=== PATIENT | male | born 1970 | race African-American/Black ===

== ENCOUNTER 2023-03-22 11:06 | Emergency (ER) | payer OTHER, SELFPAY ==
--- NOTE | ~2023-03-22 | XR_ITS ---
EXAMINATION: Right foot and ankle x-rays CLINICAL INFORMATION: Trauma COMPARISON: None. TECHNIQUE: 3 views of the right foot and 3 views of the right ankle FINDINGS: Right foot: Bone alignment is normal. No fracture or dislocation. Normal joint spaces. Normal soft tissues. Right ankle: Bone alignment is normal. No acute fracture or dislocation. Well-corticated soft tissue ossifications inferior to the medial malleolus suggestive of old trauma. Normal ankle mortise. Soft tissue calcification in the posterior lower leg suggestive of Achilles tendon calcification or myotendinous junction calcification. There may be soft tissue swelling in this region as well. XR/XR ankle RT min 3V IMPRESSION: No acute fracture or dislocation. Evidence of old trauma to the medial malleolus. Soft tissue calcification and soft tissue swelling of the Achilles tendon/myotendinous junction.
--- NOTE | ~2023-03-22 | XR_ITS ---
EXAMINATION: Right foot and ankle x-rays CLINICAL INFORMATION: Trauma COMPARISON: None. TECHNIQUE: 3 views of the right foot and 3 views of the right ankle FINDINGS: Right foot: Bone alignment is normal. No fracture or dislocation. Normal joint spaces. Normal soft tissues. Right ankle: Bone alignment is normal. No acute fracture or dislocation. Well-corticated soft tissue ossifications inferior to the medial malleolus suggestive of old trauma. Normal ankle mortise. Soft tissue calcification in the posterior lower leg suggestive of Achilles tendon calcification or myotendinous junction calcification. There may be soft tissue swelling in this region as well. XR/XR foot RT min 3V IMPRESSION: No acute fracture or dislocation. Evidence of old trauma to the medial malleolus. Soft tissue calcification and soft tissue swelling of the Achilles tendon/myotendinous junction.
--- NOTE | ~2023-03-22 | US_ITS ---
EXAMINATION: US VENOUS ULTRASOUND WITH DOPPLER LOWER EXTREMITY, RIGHT CLINICAL INFORMATION: Right lower extremity swelling and redness. History of Achilles tendon repair 12 years ago with palpable lump. History of the trauma 1 week ago COMPARISON: None available. TECHNIQUE: Ultrasound of the deep veins is performed from the hip to the calf with compression sonography and color and pulse Doppler assessment. Spectral analysis with color-flow imaging is performed. Grayscale imaging with linear transducer of the palpable lump/Achilles tendon is also performed. FINDINGS: There is normal venous compression and respiratory variation and augmented flow. The visualized common femoral vein, superficial femoral vein, profunda femoral vein, popliteal vein, and the trifurcation region shows no evidence of deep venous thrombosis. There is no Dobson's cyst. There are postsurgical changes to the Achilles tendon. No obvious tear is seen. There is increased soft tissue adjacent to this region which appears hypervascular and small amount of fluid. Appearance is questionable for a hematoma or abscess. This could be better further evaluated with MRI. US/US venous duplex LE RT IMPRESSION: No DVT demonstrated in the right lower extremity. Postsurgical changes from previous Achilles tendon repair. No obvious Achilles tendon tear appreciated by ultrasound. Adjacent abnormal hypervascular soft tissue and small amount of fluid. Hematoma or infection should be considered. This could be better evaluated with MRI if clinically indicated.
[2023-03-22 11:12] VITALS: BP 128/87; PULSE 80; RESP 18; TEMP 36.3; O2SAT 98; BMI 29.9
--- NOTE | 2023-03-22 11:12 | ED_ITS ---
HPI - Extremity Injury (Lower) General Chief Complaint: Extremity Problem Stated Complaint: right foot/ankle injury Time Seen by Provider: 03/22/23 15:34 Source: patient Mode of arrival: ambulatory Limitations: no limitations History of Present Illness HPI Narrative: Patient presents with 1 week of right ankle pain. Patient stepped off a step at that time. The 1st day felt no significant symptoms but the following day developed increasing right ankle pain. The pain was moderate in nature. The pain does not radiate. Sharp in achy. Is worse with ambulation. Associated with redness and swelling. Symptoms have been steadily getting worse. He has had no fevers or chills. Denies any numbness or tingling. He has no chest pain or shortness of breath. Patient denies a history of PE or DVT. He does have a history of Achilles tendon repair. Related Data Previous Rx's Medication Instructions Recorded sulfamethoxazole 800 1 tab PO BID #20 tabs 03/22/23 mg-trimethoprim 160 mg tablet (Bactrim DS) Allergies Allergy/AdvReac Type Severity Reaction Status Date / Time No Known Allergies Allergy Verified 03/22/23 11:12 Review of Systems Review of Systems: CONSTITUTIONAL: Denies weight loss, fever and chills. HEENT: Denies changes in vision and hearing. RESPIRATORY: Denies SOB and cough. CV: Denies palpitations no CP. GI: Denies abdominal pain, nausea, vomiting and diarrhea. : Denies dysuria and urinary frequency. MSK: + myalgia and joint pain. SKIN: Denies rash and pruritus. NEUROLOGICAL: Denies headache and syncope. PSYCHIATRIC: Denies recent changes in mood. Denies anxiety and depression. All other ROS are negative unless in HPI PMFSH Social History Social History Advance Directives: No Advance Directives Information Provided: Yes Physical Exam Vital Signs: Vital Signs: Last Vital Signs Temp 97.4 F 03/22/23 11:12 Pulse 71 03/22/23 15:15 Resp 18 03/22/23 15:22 BP 155/85 H 03/22/23 15:22 Pulse Ox 97 03/22/23 15:22 O2 Del Method Room Air 03/22/23 15:15 BMI result Body Mass Index 29.9 GEN: Well developed, no acute distress, alert, oriented HEENT: Normocephalic, atraumatic, normal external ears, nose appears normal Eyes: Normal to appearance Neck: Supple, no lymphadenopathy Respiratory: Talks in complete sentences, no respiratory distress Extremities: No clubbing cyanosis or edema, right Achilles redness, swelling, tenderness, swelling, no fluctuance surfaces, neurovascularly intact Neurologic: No focal neurologic deficits, cranial nerves 2-12 intact, gait normal Skin: No rash Course Course Course Narrative: RME: 52yo M w/no sig PMHx c/o Right ankle pain, swelling & erythema x6 days s/p twisitng foot. denies known insect bites, fever, SOB, or clots. Did travel to [place] recently limping gait. R posterior ankle w/erythema, swelling, warmth & mild induration. +1 edema RLE Labs, XR, Duplex US ordered Full HPI, ROS and PE to be performed by primary ED provider. Reevaluation(s) Reevaluation #1: The workup is complete. Peers to have cellulitis. There may be an early abscess formation. There is nothing to drain at this time. Will start patient on oral antibiotics, analgesics, warm compresses and follow-up in 3-5 days with his primary care provider sooner if needed Time: 15:48 Medical Decision Making Medical Decision Making [facility] Narrative: Patient presents with swelling, redness and pain to the right Achilles tendon area. Differential diagnosis could be cellulitis, abscess, DVT, cystic structure, and Achilles tendon rupture, inflammatory changes. Patient will need x-rays to assess for bony injury given the traumatic nature of his symptoms, ultrasound to rule out DVT. They may be able to further assess make sure there is no Achilles tendon related issues. At this point I presume the patient has cellulitic changes and would recommend oral antibiotics pending further evaluation. Differential Diagnosis Differential Diagnoses: The differential diagnosis associated with the presentation includes (See above) Lab Data [facility] Lab Attestation statement: I reviewed the patient's lab results. 03/22/23 11:24 03/22/23 11:24 Labs: Lab Results 03/22/23 03/22/23 Range/Units 11:24 11:24 WBC 5.7 (4.8-10.8) X10*3/uL RBC 4.41 L (4.60-5.80) X10*6/uL Hgb 13.5 L (14.0-18.0) g/dl Hct 41.4 L (42.0-52.0) % MCV 93.9 (80.0-98.0) fL MCH 30.6 (27.0-33.0) pg MCHC 32.6 (31.0-36.0) g/dl RDW 12.9 (11.0-16.0) % Plt Count 277 (160-400) X10*3/uL MPV 10.2 (9.4-12.4) fL Immature Gran % (Auto) 0.4 (0.0-0.4) % Neut % (Auto) 63.8 (45-73) % Lymph % (Auto) 18.4 L (20-40) % [place] % (Auto) 9.5 (2-11) % Eos % (Auto) 7.2 H (0-4) % Baso % (Auto) 0.7 (0-2) % Lymph # (Auto) 1.1 L (1.2-4.9) X10*3/uL [place] # (Auto) 0.5 (0.1-1.2) X10*3/uL Eos # (Auto) 0.4 (0.0-0.4) X10*3/uL Baso # (Auto) 0.0 (0.0-0.2) X10*3/uL Abs Immat Gran (auto) 0.02 (0.00-0.03) X10*3/uL Absolute Neuts (auto) 3.6 (2.0-8.3) x10*3/uL Absolute Nucleated RBC 0.000 (0.0-0.012) X10*3/uL Nucleated RBC % (auto) 0.0 (0.0-0.2) /100WBC Sodium 142 (135-145) mmol/L Potassium 3.8 (3.3-5.1) mmol/L Chloride 109 H (96-108) mmol/L Carbon Dioxide 24 (22-29) mmol/L Anion Gap 13 (12-20) BUN 15 (9-16) mg/dL Creatinine 1.14 (0.5-1.4) mg/dL Estim Creat Clear Calc 93.8 Estimated GFR > 60 Random Glucose 141 H (60-115) mg/dL Calcium 9.4 (8.4-10.2) mg/dL Independent Interpretation I performed an independent interpretation of an: Plain X-Ray (Right foot, right ankle, no acute traumatic injury) Radiology Impression Discussion of test interpretation with radiology: I have reviewed the radiologist's reading. Radiologist Impression: US/US venous duplex LE RT IMPRESSION: No DVT demonstrated in the right lower extremity. Postsurgical changes from previous Achilles tendon repair. No obvious Achilles tendon tear appreciated by ultrasound. Adjacent abnormal hypervascular soft tissue and small amount of fluid. Hematoma or infection should be considered. This could be better evaluated with MRI if clinically indicated. Dictated By: Jeanine Alves MD Signed By: <Electronically signed by Jeanine Alves MD in [place]> 03/22/23 1257 Tests considered The following testing was considered but not selected: CT scan Prescription Management I considered prescription management with: Pain Medication and Antibiotic Chronic Conditions Patient?s care impacted by: Other (Gout) Discharge Plan Discharge Clinical Impression: Cellulitis Patient Disposition: Home, Self-Care Instructions: Cellulitis (ED), Warm Compress or Soak (ED) Prescriptions: New sulfamethoxazole-trimethoprim [Bactrim DS] 800-160 mg tablet 1 tab PO BID Qty: 20 0RF Referrals: Gurjit Rojas MD [Primary Care Provider] - 3 days
[2023-03-22 11:28] LABS: MANUAL DIFF FLAG NO
[2023-03-22 11:31] LABS: Basophils Percent Auto 0.7 % (0-2); Eosinophils Absolute Auto 0.4 X10*3/uL (0.0-0.4); Eosinophils Percent Auto 7.2 % (0-4); Hematocrit 41.4 % (42.0-52.0); Hemoglobin 13.5 g/dl (14.0-18.0); Imm Gran Abs Auto 0.02 X10*3/uL (0.00-0.03); Imm Gran Pct Auto 0.4 % (0.0-0.4); Lymphocytes Absolute Auto 1.1 X10*3/uL (1.2-4.9); Lymphocytes Percent Auto 18.4 % (20-40); Mean Corpuscular HGB Conc 32.6 g/dl (31.0-36.0); Mean Corpuscular Hemoglobin 30.6 pg (27.0-33.0); Mean Corpuscular Volume 93.9 fL (80.0-98.0); Mean Platelet Volume 10.2 fL (9.4-12.4); Monocytes Absolute Auto 0.5 X10*3/uL (0.1-1.2); Monocytes Percent Auto 9.5 % (2-11); Neutrophils Absolute Auto 3.6 x10*3/uL (2.0-8.3); Neutrophils Percent Auto 63.8 % (45-73); Platelet Count 277 X10*3/uL (160-400); Red Blood Count 4.41 X10*6/uL (4.60-5.80); Red Cell Distribution Width 12.9 % (11.0-16.0); White Blood Count 5.7 X10*3/uL (4.8-10.8)
[2023-03-22 11:50] LABS: Anion Gap 13 (12-20); Blood Urea Nitrogen 15 mg/dL (9-16); Calcium 9.4 mg/dL (8.4-10.2); Carbon Dioxide 24 mmol/L (22-29); Chloride 109 mmol/L (96-108); Creatinine Clr Calc Pharmacy 93.8; Estimated Glomerular Filt Rate > 60; Glucose Random 141 mg/dL (60-115); Potassium 3.8 mmol/L (3.3-5.1); Sodium 142 mmol/L (135-145)
[2023-03-22 15:15] VITALS: BP 139/93; PULSE 71; RESP 18; O2SAT 99
[2023-03-22 15:22] VITALS: BP 155/85; RESP 18; O2SAT 97
[2023-03-22 16:58] VITALS: BP 123/72; PULSE 73; RESP 18; O2SAT 100
== END 2023-03-22 17:09 | disposition home or self-care (01) ==
PROVIDERS: Physician Assistant; Emergency Provider Emergency Medicine; PCP Internal Medicine
DX: L03.115 Cellulitis of right lower limb (principal); R60.0 Localized edema
CPT/HCPCS: 36415; 73610; 73630; 80048; 85025; 93971; 99283; 99284

== ENCOUNTER 2023-11-30 13:13 | Emergency (ER) | payer SELFPAY ==
--- NOTE | ~2023-11-30 | XR_ITS ---
EXAMINATION: XR ANKLE, LEFT CLINICAL INFORMATION: Pain and swelling COMPARISON: None available. TECHNIQUE: AP, lateral, and mortise views of the left ankle. FINDINGS: Density seen medially. These could be the sequela of chronic injury but an acute fracture cannot be excluded involving the distal tibia medial malleolus. There is degenerative change at the tibiotalar articulation. Unusual appearance to the lateral malleolus could represent a healed fracture. Correlation recommended clinically. There is a bony density laterally associated with the calcaneus which could again represent sequela of previous injury. Point palpation recommended here. XR/XR ankle LT min 3V IMPRESSION: There are degenerative changes here with global soft tissue swelling. Findings suggest sequela of previous injury laterally but correlation would need to be made clinically. Underlying fracture cannot be completely excluded. Bony densities with lucency medially. Again this could represent the sequela of previous injury but acute fracture cannot be excluded. If further evaluation is warranted consider
[2023-11-30 13:31] VITALS: BP 153/88; PULSE 82; RESP 18; TEMP 36.5; O2SAT 99; BMI 35.0
--- NOTE | 2023-11-30 13:31 | ED.GENADULT ---
HPI - General Adult General Chief complaint: General Medical Stated complaint: Swelling in foot/ankle Time Seen by Provider: 11/30/23 13:48 Source: patient Mode of arrival: ambulatory Limitations: no limitations History of Present Illness HPI narrative: 53-year-old male history of obesity presenting to the emergency department with complaints of left foot and ankle pain over the past 3-4 days worsening, patient reports he has had gout and cellulitis in the past, this episode seems similar to these. Patient reports pain is worse with movement better at rest. Patient denies fevers, chills, numbness, tingling, headache, vision changes, chest pain, shortness of breath, weakness, changes in skin color, trauma. No history of DVT or PE. Related Data Previous Rx's Medication Instructions Recorded sulfamethoxazole 800 1 tab PO BID #20 tabs 03/22/23 mg-trimethoprim 160 mg tablet (Bactrim DS) naproxen 500 mg tablet 500 mg PO BID #14 tabs 11/30/23 prednisone 50 mg tablet 50 mg PO DAILY 5 days #5 tabs 11/30/23 Allergies Allergy/AdvReac Type Severity Reaction Status Date / Time No Known Allergies Allergy Verified 03/22/23 11:12 Review of Systems Review of Systems: Yes all other systems are reviewed and are negative PMFSH Past Medical History Attestation statement: The following information was validated with the patient. Source: old records reviewed and nursing notes reviewed Physical Exam ED Vital Signs: Vital Signs - 24 hr 11/30/23 13:31 Temperature 97.7 F Pulse Rate 82 Respiratory Rate 18 Blood Pressure 153/88 H Pulse Oximetry 99 Oxygen Delivery Method Room Air BMI result Body Mass Index 35.0 vss Appearance: Alert.? Oriented X3.? No acute distress.? Head: Normocephalic, atraumatic, no step-offs or deformities Eyes: Pupils equal, round and reactive to light.? CVS: Normal heart rate and rhythm.? Pulses normal.? Respiratory: No respiratory distress.? Breath sounds normal.? Abdomen: Soft and nontender.? Skin: Skin warm and dry.? Normal skin color.? Normal skin turgor.? Extremities: No lower extremity edema.? No calf ttp, negative Homans bilaterally. 5/5 strength to bilateral upper and lower extremities + discomfort with palpation of left foot throughout wose medial aspect and left ankle discomfort with range of motion (mild) however full range of motion. No overlying skin changes. No step-offs or deformities. Normal sensation distally. 2+ dorsalis pedis, anterior tibialis and posterior tibialis pulses equal bilateral. Neuro: Oriented X 3.? No motor deficit.? No sensory deficit. CN 2-12 intact . Using crutches for ambulation Course Course Course Narrative: This is a rapid medical exam: Additional HPI, ROS, PE not included below will be deferred to primary provider. Patient is a 53-year-old male with history of gout presenting to the ED with complaint of left foot and ankle pain and swelling for the past 3-4 days. Denies fall or other trauma. Also reports hx of cellulitis, states feels similar. No erythema or warmth noted in triage. Plan: x-ray Reevaluation(s) Reevaluation #1: X-ray pending. Will call him if it is abnormal. Educated patient on diagnosis and treatment plan, answered all question, patient verbalizes understanding. At this time patient will be discharged home, advised to return with new or worsening symptoms. Educated on worrisome signs and symptoms and when to return. At this time I feel comfortable discharge home. Time: 14:10 Medical Decision Making Medical Decision Making MDM Narrative: 53-year-old male presents with left ankle/foot pain swelling for past 3-4 days. Physical exam significant for No lower extremity edema.? No calf ttp, negative Homans bilaterally. 5/5 strength to bilateral upper and lower extremities + discomfort with palpation of left foot throughout and left ankle discomfort with range of motion of left ankle however full range of motion. No overlying skin changes. No step-offs or deformities. Normal sensation distally. 2+ dorsalis pedis, anterior tibialis and posterior tibialis pulses equal bilateral. History and physical exam concerning for gout versus pseudogout. No signs of cellulitis. Unlikely osteomyelitis, neurovascular compromise, threat to Garcia, DVT, arterial occlusion. Unlikely fracture, dislocation or osteomyelitis. Plan x-ray ordered from triage Differential Diagnosis Differential Diagnoses: The differential diagnosis associated with the presentation includes History and physical exam concerning for gout versus pseudogout. No signs of cellulitis. Unlikely osteomyelitis, neurovascular compromise, threat to Garcia, DVT, arterial occlusion. Unlikely fracture, dislocation or osteomyelitis. Admission/Observation Consideration of admission/observation: Escalation of care including admission/observation considered Unlikely Independent Interpretation I performed an independent interpretation of an: Plain X-Ray Radiology Impression Discussion of test interpretation with radiology: I have reviewed the radiologist's reading. Prescription Management I considered prescription management with: Pain Medication and Other (Prednisone) Discharge Plan Discharge Clinical Impression: Foot pain, left Patient Disposition: Home, Self-Care Instructions: Arthralgia (ED) Additional Instructions: Take your medications as prescribed. If you were prescribed antibiotics today, it is important that you take your medication to their entirety, do not skip any doses, do not finish them early. Follow-up with your primary care provider this week. Return to the emergency department with new or worsening symptoms. Such as fevers, chills, chest pain, shortness of breath, nausea, vomiting, dizziness, headache, vision changes, lethargy In case of emergency call 911 I am concerned he may have gout. Please take medications as prescribed. Prescriptions: New prednisone 50 mg tablet 50 mg PO DAILY 5 Days Qty: 5 0RF naproxen 500 mg tablet 500 mg PO BID Qty: 14 0RF No Action sulfamethoxazole-trimethoprim [Bactrim DS] 800-160 mg tablet 1 tab PO BID Qty: 20 0RF Referrals: Physician,Unknown J [Primary Care Provider] - 2 days
== END 2023-11-30 14:29 | disposition home or self-care (01) ==
PROVIDERS: Emergency Provider Emergency Medicine
DX: M79.672 Pain in left foot (principal); M25.572 Pain in left ankle and joints of left foot; Z87.39 Personal history of other diseases of the musculoskeletal system and connective tissue; Z87.2 Personal history of diseases of the skin and subcutaneous tissue
CPT/HCPCS: 73610; 99283